=== PATIENT | male | born 1945 | race Hispanic/Latino ===

== ENCOUNTER 2019-08-09 13:55 | Outpatient (CLI) | payer MEDICARE ==
[2019-08-09 14:25] LABS: Hematocrit 35.7 % (35.5-45.6); Hemoglobin 12.3 gm/dl (11.8-15.2); Mean Corpuscular HGB Conc 35 % (32-34); Mean Corpuscular Volume 89 fl (84-94); Platelet Count 165 K/mm3 (140-440); Red Blood Count 3.99 M/mm3 (3.65-5.03)
[2019-08-09 14:26] LABS: Basophils % (Manual) 2 % (0.0-1.8); Eosinophils % (Manual) 4 % (0.0-4.3); Monocytes % (Manual) 7 % (0.0-7.3)
[2019-08-09 14:27] LABS: Band Neutrophils # (Manual) 0.1 K/mm3
[2019-08-09 14:28] LABS: Platelet Estimate Consistent w Auto; RBC Morphology Normal
[2019-08-09 14:52] LABS: Alanine Aminotransferase 11 units/L (7-56); BUN/Creatinine Ratio 28; Blood Urea Nitrogen 22 mg/dL (9-20); Calcium 8.9 mg/dL (8.4-10.2); Hemolysis Index 5
== END 2019-08-09 13:56 | disposition home or self-care (01) ==
LOC: LABHHL 13:55
PROVIDERS: ATTEND Family Medicine
DX: U07.1 COVID-19 (principal); I51.9 Heart disease, unspecified; F32.1 Major depressive disorder, single episode, moderate; G30.1 Alzheimer's disease with late onset; M62.81 Muscle weakness (generalized)
CPT/HCPCS: 36415; 80053; 85007; 85025